=== PATIENT | female | born 1960 | race African-American/Black ===

== ENCOUNTER 2019-05-14 10:42 | Emergency (ER) | payer MEDICAID ==
[~2019-05-14] VITALS: Ht 167.6 cm; Wt 86.0 kg
[2019-05-14] MEDS ORDERED: HYDROCODONE/ACETAMINOPHEN 5/325MG TABLET PO ONE (12:45)
[2019-05-14 12:54] VITALS: BP 130/90
== END 2019-05-14 13:02 | disposition home or self-care (01) ==
LOC: ER 10:42
DX: K02.9 Dental caries, unspecified (principal)
CPT/HCPCS: 99283